=== PATIENT | female | born 1970 | race Caucasian/White ===

== ENCOUNTER 2017-01-29 11:16 | Emergency (ER) | payer OTHER ==
--- NOTE | 2017-01-29 11:19 | PDOC ---
History of Present Illness - General Chief Complaint: Headache Stated Complaint: HEAD ACHE S/P TRAUMA Time Seen by Provider: 01/29/17 11:18 - History of Present Illness Initial Comments: 01/29/17 11:33 Patient is a 46 year old female who presents with headache and nausea from PCP following head trauma 4 days ago. The patient reports that 4 days ago, after drinking 3 glasses of wine, she tripped and struck her head against a cement wall. She reports no loss of consciousness and reports feeling fine after the incident. Since then, she reports headache and some nausea worse in the evenings that improves with Excedrin. She also endorses some left eye and ear pressure. She presented to her PCP this morning who sent her to the ED for evaluation. She denies any numbness, tingling, weakness, vision changes. She denies any anticoagulant medication. Past History - Past Medical History Allergies/Adverse Reactions: Allergies Allergy/AdvReac Type Severity Reaction Status Date / Time No Known Allergies Allergy Verified 01/29/17 11:24 Home Medications: Ambulatory Orders Levothyroxine [Synthroid -] 75 mcg PO DAILY 01/29/17 Review of Systems - Review of Systems Constitutional: No: Chills, Fever HEENTM: No: Blurred Vision, Recent change in vision Respiratory: No: Cough, Shortness of Breath Cardiac (ROS): No: Chest Pain, Lightheadedness ABD/GI: No: Constipated, Diarrhea, Nausea, Vomiting Neurological: Yes: Headache. No: Numbness, Tingling, Weakness, Unsteady Gait *Physical Exam - Physical Exam Comments: 01/29/17 11:44 General Appearance: Nourished. No Apparent Distress HEENT: EOMI, CASTILLO. TM clear with normal light reflex Respiratory/Chest: Lungs Clear, Normal Breath Sounds. No Crackles, Rales, Rhonchi, Wheezing Cardiovascular: Regular Rhythm, Regular Rate. No Murmur, Gallop/S3, Gallop/S4 Gastrointestinal/Abdominal: Normal Bowel Sounds, Soft. No Guarding, Rebound, Tenderness Extremity: Normal Capillary Refill Integumentary: Normal Color, Dry, Warm Neurologic: tool trouble shooter II-XII NML intact, Fully Oriented, Alert, Normal Mood/Affect, Normal Response, Motor Strength 5/5. Normal Finger to Nose and Heel to [place] Medical Decision Making - Medical Decision Making 01/29/17 11:46 Patient is a 46 year old female who presents with headache and nausea from PCP following head trauma 4 days ago. Differential includes but is not limited to: Intracranial bleed, fracture, concussion. Given her physical exam and history, it is likely her symptoms are due to a concussive syndrome however it is reasonable to evaluate for intracranial process. We will obtain a head CT to evaluate. 01/29/17 13:00 CT head is negative as read by our radiologist. We discussed the results with the patient and gave her return precautions as well. It is likely her symptoms are due to post traumatic headache. We feel comfortable discharging the patient home at this time. The patient voiced understanding and is agreeable with the plan. *DC/Admit/Observation/Transfer Diagnosis at time of Disposition: Concussion Qualifiers: Encounter type: subsequent encounter Loss of consciousness presence/duration: without LOC Qualified Code(s): S06.0X0D - Concussion without loss of consciousness, subsequent encounter - Discharge Dispostion Disposition: HOME Condition at time of disposition: Good Admit: No - Patient Instructions Printed Discharge Instructions: DI for Concussion, DI for Post-traumatic Headache Additional Instructions: Please return to the ER if you experience concerning or worsening symptoms including worsening headache, gait disturbances, fevers, chills. You may use Tylenol or ibuprofen to help with any headache. Please limit your physical activity over the next 2-3 days. Please follow up with you primary care provider to discuss your ER visit. Your CT scan results are negative.
[2017-01-29 11:30] VITALS: BP 147/89; PULSE 67; TEMP 97.9; BMI 19.7
--- NOTE | 2017-01-29 11:44 | PDOC ---
Attending Attestation - Resident Resident Name: Rojelio Vasquez - ED Attending Attestation I have performed the following: I have examined & evaluated the patient, The case was reviewed & discussed with the resident, I agree w/resident's findings & plan, Exceptions are as noted - HPI HPI: 01/29/17 11:42 46-year-old female with past medical history of hypothyroidism presents with headache for 4 days. The patient was sent from a doctor's office for head CT. The patient or days ago had 3 glasses of wine and had mechanical fall and hit her head against a cement wall. Denies loss of consciousness. At that time, did not know any symptoms. However, the following day, she started developing a throbbing right-sided headache with some nausea. Denies any numbness, weakness or tingling. Denies taking anticoagulants. Came into the ED. - Physicial Exam PE: 01/29/17 11:43 GENERAL: Awake, alert, and fully oriented, in no acute distress. HEAD: No signs of trauma EYES: PERRLA, EOMI, sclera anicteric, conjunctiva clear ENT: Auricles normal inspection, hearing grossly normal, nares patent, oropharynx clear without exudates. NECK: Normal ROM, supple, no lymphadenopathy, JVD, or masses LUNGS: Breath sounds equal, clear to auscultation bilaterally. No wheezes, and no crackles HEART: Regular rate and rhythm, normal S1 and S2, no murmurs, rubs or gallops ABDOMEN: Soft, nontender, normoactive bowel sounds. No guarding, no rebound. No masses EXTREMITIES: Normal range of motion, no edema. No clubbing or cyanosis. No cords, erythema, or tenderness NEUROLOGICAL: Cranial nerves II through XII intact. Normal speech, normal gait. 5/5 strength upper and lower extremities. No pronator drift. SKIN: Warm, Dry, normal turgor, no rashes or lesions noted. - Medical Decision Making 01/29/17 11:43 Vital Signs Temp Pulse Resp BP Pulse Ox 97.9 F 67 18 147/89 100 01/29/17 11:17 01/29/17 11:17 01/29/17 11:17 01/29/17 11:17 01/29/17 11:17 I suspect likely concussive syndrome. However, we'll rule out intracranial hemorrhage secondary to trauma. Head CT and reassess. If the head CT is negative, the patient can be discharged home with supportive care. I checked the patient regarding symptoms and how to handle a concussion. She is advised rest and to follow with her primary care physician. 01/29/17 13:[address] negative. Pt will go home with her sister.
== END 2017-01-29 13:05 | disposition home or self-care (01) ==
LOC: FER 11:16
DX: S06.0X0A Concussion without loss of consciousness, initial encounter (principal); W22.01XA Walked into wall, initial encounter; Y93.89 Activity, other specified; Y92.9 Unspecified place or not applicable
CPT/HCPCS: 70450-TC; 99281-25

== ENCOUNTER 2017-12-22 09:50 | Emergency (ER) | payer OTHER ==
--- NOTE | 2017-12-22 10:01 | PDOC ---
History of Present Illness - General Chief Complaint: Pain Stated Complaint: RLQ ABD PAIN Time Seen by Provider: 12/22/17 09:52 History Source: Patient Exam Limitations: No Limitations - History of Present Illness Travel History: No Initial Comments: 12/22/17 10:00 47y F hx of fibromyalgia, sp hysteretomy presents with RLQ abominal pain, sharp , constant/worsening, onset around 6am that woke her from sleep associated with nausea without vomiting. Pt notes it sometimes radiates to the back. Pt denies any vomiting,f ever/chills, diarrhea, dysuria, hematuria, vag bleeding, discharge, cp, sob. No prior history of similar pain in the past. no trauma/ heavy lifting. Patient had a BM that was normal, not tarry/black without blood Past History - Past Medical History Allergies/Adverse Reactions: Allergies Allergy/AdvReac Type Severity Reaction Status Date / Time No Known Allergies Allergy Verified 12/22/17 09:51 Home Medications: Ambulatory Orders Levothyroxine [Synthroid -] 75 mcg PO DAILY 01/29/17 Citalopram Hydrobromide [Celexa -] 1.5 tab PO DAILY 12/22/17 Thyroid Disease: Yes (hypo) - Surgical History Abdominal Surgery: Yes (abd lift) - Suicide/Smoking/Psychosocial Hx Smoking History: Never smoked Hx Alcohol Use: Yes (occasional) Drug/Substance Use Hx: No Substance Use Type: None Review of Systems - Review of Systems Able to Perform ROS?: Yes Comments:: 12/22/17 10:25 Constitutional - no reported Fever, Chills, HEENT: no reported vision changes, sore throat Respiratory: no reported cough, sob, hemoptysis Cardiac: no reported chest pain, palpitations, light headedness, leg swelling Abd/GI: +abd pain, nausea, no reported vomiting, blood per rectum, melena, diarrhea : no reported dysuria, frequency, discharge Musculskelatal - no reported back pain, joint swelling skin - no reported bruising, erythema, rash neurological: no reported headache, numbness, focal weakness, tingling, ataxia, hematologic: no reported easy bruising, easy bleeding *Physical Exam - Physical Exam Comments: 12/22/17 10:26 GENERAL: The patient is awake, alert, and fully oriented, Nontoxic - in no acute distress. HEAD: Normocephalic, atraumatic. EYES: extraocular movements intact, sclera anicteric, conjunctiva clear. ENT: Normal voice, Moist mucous membranes. NECK: Normal range of motion, supple LUNGS: Breath sounds equal, clear to auscultation bilaterally. No wheezes, no rhonchi, no rales. HEART: Regular rate and rhythm, normal S1 and S2 without murmur, rub or gallop. ABDOMEN: +mild RLQ tenderness, Soft, normoactive bowel sounds. No guarding, no rebound. No CVA tenderness EXTREMITIES: Normal range of motion, No edema. NEUROLOGICAL: No facial assymetry, Normal speech, PSYCH: Normal mood, normal affect. SKIN: Warm, Dry, normal turgor, ED Treatment Course - LABORATORY CBC & Chemistry Diagram: 12/22/17 10:23 12/22/17 10:31 Medical Decision Making - Medical Decision Making 12/22/17 10:26 47-year-old female history of fibromyalgia presenting with right lower quadrant pain onset,woke her from sleep this morning around 6AM associated with nausea without fevers, chills, vomiting, urinary or bowel symptoms. On exam the patient appears uncomfortable with mild right lower quadrant tenderness without rebound or guarding. Differential for the patient's symptoms includes possible appendicitis, kidney stones Will obtain CBC, CMP, UA, urine hCG The patient medications for her pain and nausea Anticipate imaging for further evaluation 12/22/17 12:36 labs reviewed unremarkble ua neg for hcg and hematuria ct noted for some free fluid, ?ruptured ovarian cyst +renal cyst, The patient is feeling significantly improved, she notes that after the first 2 doses morphine her pain was still very significant with no improvement, after the last dose of morphine, she felt the pain slightly worsened and then improved dramatically prior to her CAT scan. Based on her clinical story and the CAT scan result I suspect her pain was secondary to a ruptured ovarian cyst. will have pt fu with aeronautical design engineer and PMD for evaluation of her renal cyst and pelvic pain return preautions were discussed I discussed the physical exam findings, ancillary test results and final diagnoses with the patient. I answered all of the patient's questions. The patient was satisfied with the care received and felt comfortable with the discharge plan and treatment plan. The patient will call their primary care physician within 24 hours to arrange follow-up and will return to the Emergency Department with any new, persistent or worsening symptoms. *DC/Admit/Observation/Transfer Diagnosis at time of Disposition: Renal cyst Abdominal pain Qualifiers: Abdominal location: right lower quadrant Qualified Code(s): R10.31 - Right lower quadrant pain - Discharge Dispostion Disposition: HOME Condition at time of disposition: Improved Decision to Admit order: No - Referrals Referrals: Rhina Acosta [Non Staff, Medical] - - Patient Instructions Printed Discharge Instructions: DI for Abdominal Pain-Adult Additional Instructions: A copy of your CT results are included. I suspect that you're pain is due to a ruptured ovarian cyst. You may have some mild residual pain however it should not get any worsening you shouldn't have not have any other symptoms clearing fevers, vomiting, worsening of the pain, urinary symptoms. Please follow-up with Dr. Acosta for evaluation of this. However if you have the above-mentioned symptoms return immediately for evaluation. You MUST call and follow up with your doctor primary care doctor for evaluation of your renal cyst. Your emergency department visit is not complete without a followup with your doctor for reevaluation. Please make sure your doctor reviews the results of your emergency evaluation. Print Language: DUTCH - Post Discharge Activity
[2017-12-22] MEDS ORDERED: ONDANSETRON 4 MG/2 ML VIAL IVPB ONE (10:03)
[2017-12-22] MEDS ORDERED: SODIUM CHLORIDE 1,000 ML IV ONE (10:03)
[2017-12-22] MEDS ORDERED: morphine CARPU-JECT 4 MG/1 ML DISP.SYRIN IVPUSH ONE ×2 (10:03→10:48)
[2017-12-22] MEDS ORDERED: morphine CARPU-JECT 10 MG/1 ML DISP.SYRIN ONE (10:03)
[2017-12-22] MEDS ORDERED: ONDANSETRON 4 MG/2 ML VIAL ONE (10:04)
[2017-12-22 10:20] LABS: URINE APPEARANCE CLEAR; URINE BILIRUBIN NEGATIVE (NEGATIVE); URINE COLOR YELLOW; URINE GLUCOSE (UA) NEGATIVE (NEGATIVE); URINE KETONE NEGATIVE (NEGATIVE); URINE LEUK ESTERASE NEGATIVE (NEGATIVE); URINE NITRITE NEGATIVE (NEGATIVE); URINE PROTEIN NEGATIVE (NEGATIVE); URINE UROBILINOGEN 0.2 (0.2-1.0)
[2017-12-22 10:21] VITALS: BP 160/91; PULSE 64; TEMP 97.5; BMI 19.7
[2017-12-22] MEDS ORDERED: KETOROLAC TROMETHAMINE 30 MG/1 ML VIAL IVPUSH ONE (10:27)
[2017-12-22] MEDS ORDERED: morphine CARPU-JECT 2 MG/1 ML DISP.SYRIN IVPUSH ONE (10:27)
[2017-12-22] MEDS ORDERED: KETOROLAC TROMETHAMINE 30 MG/1 ML VIAL ONE (10:28)
[2017-12-22 10:40] LABS: BASO % 0.4 % (0-2.0); EOS % 0.4 % (0-4.5); HEMOGLOBIN 15.1 GM/dl (10.7-15.3); LYMPH % 22.2 % (8-40); MCH 30.7 pg (25.7-33.7); MCHC 33.5 g/dl (32.0-36.0); MEAN CELL VOLUME 91.7 fl (80-96); MEAN PLT VOLUME 8.3 fl (7.5-11.1); MONO % 6.9 % (3.8-10.2); NEUT % 70.1 % (42.8-82.8); PLATELET COUNT 267 K/MM3 (134-434); RBC 4.91 M/mm3 (3.60-5.2); RDW 12.3 % (11.6-15.6); WHITE BLOOD COUNT 8.6 K/mm3 (4.0-10.8)
[2017-12-22 10:44] LABS: ALBUMIN 4.6 g/dl (3.5-5.0); ALK PHOS 47 U/L (32-92); ANION GAP 8 (8-16); BILIRUBIN,TOTAL 0.7 mg/dl (0.2-1.0); BLOOD UREA NITROGEN 15 mg/dl (7-18); CALCIUM 9.3 mg/dl (8.4-10.2); CHLORIDE 100 mmol/L (98-107); CO2 23 mmol/L (22-28); CREATININE 0.7 mg/dl (0.6-1.3); GLUCOSE,RANDOM 129 mg/dl (74-106); POTASSIUM 3.8 mmol/L (3.5-5.1); SGOT/AST 22 U/L (10-42); SGPT/ALT 18 U/L (10-40); SODIUM 131 mmol/L (136-145); TOT PROT 7.2 g/dl (6.4-8.3)
== END 2017-12-22 12:55 | disposition home or self-care (01) ==
LOC: FER 09:50
PROC: 3E0333Z Introduction of Anti-inflammatory into Peripheral Vein, Percutaneous Approach (ICD-10-PCS; principal; 2017-12-22)
PROC: 3E033NZ Introduction of Analgesics, Hypnotics, Sedatives into Peripheral Vein, Percutaneous Approach (ICD-10-PCS; 2017-12-22)
PROC: 3E033GC Introduction of Other Therapeutic Substance into Peripheral Vein, Percutaneous Approach (ICD-10-PCS; 2017-12-22)
PROC: 3E0337Z Introduction of Electrolytic and Water Balance Substance into Peripheral Vein, Percutaneous Approach (ICD-10-PCS; 2017-12-22)
DX: N28.1 Cyst of kidney, acquired (principal); R10.31 Right lower quadrant pain; M79.7 Fibromyalgia
CPT/HCPCS: 36415; 74177-TC; 80053; 81003; 83690; 84703; 85025; 96361; 96374; 96375; 96376; 99283-25; J7030

== ENCOUNTER 2022-09-16 16:12 | Emergency (ER) | payer OTHER ==
[2022-09-16 16:32] VITALS: BP 149/82; PULSE 77; RESP 18; TEMP 98; BMI 19.3
[2022-09-16 17:10] LABS: HEMATOCRIT 40.9 % (32.4-45.2); HEMOGLOBIN 13.8 G/dL (10.7-15.3); MCH 31.9 pg (25.7-33.7); MCHC 33.7 g/dl (32.0-36.0); MEAN CELL VOLUME 94.5 fl (80-96); MEAN PLT VOLUME 8.3 fl (7.5-11.1); PLATELET COUNT 200.7 10^3/uL (134-434); RBC 4.33 10^6/uL (3.60-5.2); RDW 13.8 % (11.6-15.6); WHITE BLOOD COUNT 4.9 10^3/uL (4.0-10.8)
[2022-09-16 17:39] LABS: ALBUMIN 4.3 g/dl (3.4-5.0); ALK PHOS 63 U/L (45-117); ANION GAP 7 MMOL/L (8-16); BILIRUBIN,TOTAL 0.5 mg/dl (0.2-1); CALCIUM 9.3 mg/dl (8.5-10); CHLORIDE 106 mmol/L (98-107); CO2 25 mmol/L (21-32); CREATININE 0.9 mg/dl (0.55-1.3); GLUCOSE,RANDOM 93 mg/dl (74-106); SGOT/AST 22 U/L (15-37); SGPT/ALT 22 U/L (13-61); SODIUM 138 mmol/L (136-145); TOT PROT 6.5 g/dl (6.4-8.2)
== END 2022-09-16 18:10 | disposition home or self-care (01) ==
LOC: FER 16:12
DX: R00.2 Palpitations (principal)
CPT/HCPCS: 36415; 80053; 84484; 85027; 93005; 99284-25

== ENCOUNTER 2023-08-20 11:11 | Emergency (ER) | payer OTHER ==
[2023-08-20 11:29] VITALS: TEMP 98.6; BMI 19.3
[2023-08-20] MEDS: SODIUM CHLORIDE 1,000 ML IV ONE (11:45)
[2023-08-20] MEDS ORDERED: ACETAMINOPHEN INJECTION 100 ML IVPB ONE (11:49)
[2023-08-20] MEDS: ACETAMINOPHEN 1000 MG/100 ML BAG IVPB ONE (11:54)
[2023-08-20 12:05] LABS: HEMATOCRIT 47.4 % (32.4-45.2); HEMOGLOBIN 15.5 G/dL (10.7-15.3); MCH 30.3 pg (25.7-33.7); MCHC 32.6 g/dl (32.0-36.0); MEAN CELL VOLUME 92.8 fl (80-96); MEAN PLT VOLUME 8.3 fl (7.5-11.1); RBC 5.11 10^6/uL (3.60-5.2); RDW 13.6 % (11.6-15.6); WHITE BLOOD COUNT 9.5 10^3/uL (4.0-10.8)
[2023-08-20 12:09] LABS: INR 0.96 (0.83-1.09); PROTHROMBIN TIME (PATIENT) 11.1 SEC (9.7-13.0)
[2023-08-20 12:21] LABS: ALBUMIN 4.6 g/dl (3.4-5.0); BILIRUBIN,TOTAL 0.6 mg/dl (0.2-1); CALCIUM 9.7 mg/dl (8.5-10.1); CREATININE 0.9 mg/dl (0.6-1.3); POTASSIUM 3.8 mmol/L (3.5-5.1); TOT PROT 7.2 g/dl (6.4-8.2)
[2023-08-20 12:34] LABS: EPITHELIAL CELLS 0-5 /hpf
[2023-08-20 14:22] LABS: PLATELET ESTIMATE ADEQUATE
[2023-08-20 15:59] VITALS: BP 124/85; PULSE 84
[2023-08-20 16:04] VITALS: RESP 18
== END 2023-08-20 16:40 | disposition home or self-care (01) ==
LOC: FER 11:11
PROC: 3E03329 Introduction of Other Anti-infective into Peripheral Vein, Percutaneous Approach (ICD-10-PCS; principal; 2023-08-20)
PROC: 3E030NZ Introduction of Analgesics, Hypnotics, Sedatives into Peripheral Vein, Open Approach (ICD-10-PCS; 2023-08-20)
PROC: 3E0337Z Introduction of Electrolytic and Water Balance Substance into Peripheral Vein, Percutaneous Approach (ICD-10-PCS; 2023-08-20)
DX: R10.814 Left lower quadrant abdominal tenderness (principal); A09 Infectious gastroenteritis and colitis, unspecified
CPT/HCPCS: 36415; 74177-TC; 80053; 81003; 81015; 82272; 85027; 85610; 86850; 86900; 86901; 99285-25; J0131; Q9967